=== PATIENT | male | born 1955 | race Caucasian/White ===

== ENCOUNTER → 2023-10-10 09:45 | Outpatient (REF) | payer OTHER, SELFPAY | LOC: MRI 3T 09:45 | PROVIDERS: ATTENDING PHYSICIAN Radiology Body Imaging; FAMILY PHYSICIAN Family Medicine | DX: C22.0 Liver cell carcinoma (principal) | CPT/HCPCS: 74183; A9581 ==

== ENCOUNTER → 2023-11-13 11:16 | Outpatient (REF) | payer OTHER, SELFPAY | LOC: RAD 11:16 | PROVIDERS: ATTENDING PHYSICIAN Internal Medicine Critical Care Medicine; FAMILY PHYSICIAN Student in an Organized Health Care Education/Training Program | DX: J84.9 Interstitial pulmonary disease, unspecified (principal) | CPT/HCPCS: 71250 ==

== ENCOUNTER → 2024-02-14 08:42 | Outpatient (REF) | payer OTHER, SELFPAY | LOC: RAD 08:42 | PROVIDERS: ATTENDING PHYSICIAN Internal Medicine Critical Care Medicine; FAMILY PHYSICIAN Student in an Organized Health Care Education/Training Program | DX: R91.1 Solitary pulmonary nodule (principal) | CPT/HCPCS: 71250 ==

== ENCOUNTER 2024-05-18 06:24 | Day surgery (SDC) | payer OTHER, SELFPAY ==
[2024-04-22 13:13] VITALS: BMI 29.1
[2024-04-22 13:50] LABS: Hematocrit 47.5 % (39.0-52.0); Hemoglobin 16.1 g/dL (13.0-18.0); Mean Corp Hgb Conc. 33.9 g/dL (33.0-37.0); Mean Corpuscular Hgb 33.1 pg (27.0-31.0); Mean Corpuscular Volume 97.7 fL (80.0-94.0); Mean Platelet Volume 11.1 fL (7.4-10.4); Platelet Count 149 10^3/uL (130-400); Red Blood Cell Count 4.86 10^6/uL (4.70-6.10); Red Cell Dist. Width 13.4 % (11.5-14.5); White Blood Cell Count 6.6 10^3/uL (4.8-10.8)
[2024-04-22 13:58] LABS: INR 1.09; PT 14.7 Sec (11.4-14.6)
[2024-04-22 13:59] LABS: APTT 30.4 Sec (23.4-35.0)
[2024-04-22 14:04] LABS: Blood Urea Nitrogen 15 mg/dl (9-20); Calcium 9.3 mg/dl (8.4-10.2); Carbon Dioxide 26 mmol/L (22-30); Chloride 104 mmol/L (98-107); Estimated Creatinine Clearance 100 ml/min; Glucose 99 mg/dl (70-99); Potassium 4.1 mmol/L (3.5-5.1); Sodium 138 mmol/L (135-145); eGFR > 60.00
[2024-05-18] VITALS (8 sets, daily range): BP systolic 95–137; BP diastolic 74–88; BMI 27.0
== END 2024-05-18 13:35 | disposition home or self-care (01) ==
LOC: SDS 06:24
PROVIDERS: ATTENDING PHYSICIAN Internal Medicine Critical Care Medicine
DX: R59.0 Localized enlarged lymph nodes (principal); C96.9 Malignant neoplasm of lymphoid, hematopoietic and related tissue, unspecified
CPT/HCPCS: 31629; 31654; 88172; 88173; 88305; 36415; 80048; 85027; 85610; 85730; 88177; 88341; 88342; 93005

== ENCOUNTER → 2024-06-16 11:48 | Outpatient (REF) | payer OTHER, SELFPAY | LOC: RAD 11:48 | PROVIDERS: ATTENDING PHYSICIAN Internal Medicine Hematology & Oncology; FAMILY PHYSICIAN Student in an Organized Health Care Education/Training Program | DX: C22.0 Liver cell carcinoma (principal) | CPT/HCPCS: 71260; 74160; Q9967 ==

== ENCOUNTER → 2024-08-06 12:12 | Outpatient (REF) | payer OTHER, SELFPAY ==
[2024-08-06 13:02] LABS: % Basophils 0.5 % (0-2); % Eosinophils 4.8 % (0-6); % Immature Granulocytes 0.5 % (0-0.5); % Lymphocytes 17.1 % (20.5-51.1); % Monocytes 11.7 % (1.7-9.3); % Neutrophils 65.4 % (42.2-75.2); Absolute Eosinophils 0.3 10^3/uL (0-0.7); Absolute Lymphocytes 1.1 10^3/uL (1.2-3.4); Absolute Monocytes 0.7 10^3/uL (0.1-0.6); Absolute Neutrophils 4.1 10^3/uL (1.4-6.5); Hematocrit 43.2 % (39.0-52.0); Hemoglobin 14.8 g/dL (13.0-18.0); Mean Corp Hgb Conc. 34.3 g/dL (33.0-37.0); Mean Corpuscular Hgb 32.2 pg (27.0-31.0); Mean Corpuscular Volume 93.9 fL (80.0-94.0); Nucleated Red Blood Cells % 0 % (-); Platelet Count 219 10^3/uL (130-400); Red Cell Dist. Width 12.8 % (11.5-14.5); White Blood Cell Count 6.2 10^3/uL (4.8-10.8)
[2024-08-06 13:13] LABS: INR 1.16; PT 15.3 Sec (11.4-14.6)
[2024-08-06 13:14] LABS: APTT 30.8 Sec (23.4-35.0)
[2024-08-06 13:38] LABS: ALT (SGPT) 16 U/L (0-50); AST (SGOT) 22 U/L (17-59); Albumin 4.3 g/dl (3.5-5.0); Alkaline Phosphatase 80 U/L (38-126); Blood Urea Nitrogen 13 mg/dl (9-20); Calcium 9.5 mg/dl (8.4-10.2); Carbon Dioxide 25 mmol/L (22-30); Chloride 104 mmol/L (98-107); Glucose 110 mg/dl (70-99); Sodium 139 mmol/L (135-145); Total Bilirubin 1.4 mg/dl (0.2-1.3); Total Protein 8.5 g/dl (6.3-8.2); eGFR > 60.00
[2024-08-06 19:18] LABS: AFP Male/Tumor Marker 4.79 ng/ml
== END ==
LOC: REG 12:12
PROVIDERS: ATTENDING PHYSICIAN Internal Medicine Hematology & Oncology; FAMILY PHYSICIAN Nurse Practitioner
DX: C22.0 Liver cell carcinoma (principal); C78.00 Secondary malignant neoplasm of unspecified lung
CPT/HCPCS: 36415; 80053; 82105; 85025; 85610; 85730

== ENCOUNTER → 2024-08-12 09:17 | Outpatient (REF) | payer OTHER, SELFPAY | LOC: RAD 09:17 | PROVIDERS: ATTENDING PHYSICIAN Internal Medicine Hematology & Oncology; FAMILY PHYSICIAN Student in an Organized Health Care Education/Training Program | DX: C22.0 Liver cell carcinoma (principal) | CPT/HCPCS: 71260; 74177; Q9967 ==

== ENCOUNTER → 2024-10-22 11:11 | Outpatient (REF) | payer OTHER, SELFPAY | LOC: RAD 11:11 | PROVIDERS: ATTENDING PHYSICIAN Internal Medicine Hematology & Oncology; FAMILY PHYSICIAN Nurse Practitioner | DX: C22.0 Liver cell carcinoma (principal); C78.00 Secondary malignant neoplasm of unspecified lung | CPT/HCPCS: 71260; 74177; Q9967 ==